=== PATIENT | male | born 1960 | race Caucasian/White ===

== ENCOUNTER 2020-04-27 15:10 | Emergency (ER) | payer OTHER ==
[~2020-04-27] VITALS: Ht 177.8 cm; Wt 95.3 kg
--- NOTE | 2020-04-27 15:38 | Emergency Room Report ---
History of Present Illness General Chief Complaint: Flu Like Symptoms Source: Patient Present Illness HPI Disclaimer: Please note that this report is being documented using [employer] technology. This can lead to erroneous entry secondary to incorrect interpretation by the dictating instrument. HPI: 60-year-old male history of hypertension presents for evaluation of shortness of breath. Symptoms began 5 days ago. Complaining of shortness of breath and dry cough. Denies fever chills, chest pain, nausea, vomiting or diarrhea. Compliant with his antihypertensive medication. Tested for COVID-19 2 days ago but results are not yet available. Multiple sick contacts with confirmed COVID-19 in the past weeks. Sent in for his PMD for rapid test and monoclonal antibody infusion if positive. No prior history of anaphylactic reaction. No other complaints from patient at this time. PMH: Hypertension PSH: Inguinal hernia repair Allergies: Denied Social Hx: Non-smoker Allergies: Coded Allergies: No Known Allergies (Unverified , 04/27/20) COVID-19 Screening Contact w/high risk pt: No Experienced COVID-19 symptoms?: Yes COVID-19 Testing performed UROLOGIST MD: Yes COVID-19 Screening: PUI COVID-19 COVID-19 Testing Source: 2 days ago Nursing Documentation-PMH Hx Hypertension: Yes Review of Systems All Other Systems: negative except mentioned in HPI Physical Exam Vital Signs Date Time Temp Pulse Resp B/P (MAP) Pulse Ox O2 Delivery O2 Flow Rate FiO2 04/27/20 15:29 98.4 99 18 120/75 (90) 94 Room Air General: Awake and alert, mildly uncomfortable, afebrile HEENT: NC/AT. EOMI. Cardiovascular: Borderline tachycardia. S1 and S2 normal. No murmur appreciated Resp: Normal work of breathing. Intermittent cough. No wheezing Skin: Intact. No abrasions, laceration or rash over the exposed skin MSK: Normal tone and bulk. Moving all extremities. No obvious deformity. Neuro: Awake and alert. Mentating appropriately. Medical Decision Making Diagnostic Impression: Primary Impression: Pneumonia Additional Impression: COVID-19 ER Course 60-year-old male presents for evaluation of shortness of breath. Concern for COVID-19 infection given multiple sick contacts recently. Pneumonia, bronchitis, pneumothorax and others also on differential. Tested positive for COVID-19 by rapid test. Pneumonia noted on chest x-ray. Prescribed Decadron and azithromycin by his PMD. Patient meets criteria for monoclonal antibody infusion. Provided with infusion drug fact sheet for patients who are considering receiving IV infusion. Patient understands and is aware that this medication is authorized for emergency use by the FDA and is still undergoing full testing. Understands monitoring necessary following infusion. Patient understands that this medication is intended to reduce symptoms and prevent hospitalization however the patient may require further testing, interventions and even hospitalization if symptoms worsen. Patient understands this is not a cure for COVID-19 infection. Addressed all patient questions. They have consented to receive monoclonal antibody infusion and for monitoring 1 hour post infusion for anaphylactic reaction. Infusion was administered via IV over the duration of 1 hour. The patient was monitored and observed for any reactions to infusion that require acute medical intervention. The patient did not have any significant re actions during the 1 hour observation period following infusion and is stable for discharge and outpatient follow-up with PMD. Instructed to return with new or worsening symptoms. Understand agree with this treatment plan. Microbiology Date/Time Source Procedure Growth Status 04/27/20 15:30 Nasopharynx SARS-CoV-2 RdRp Gene Assay - Final Complete Chest X-Ray Diagnostic Results Chest X-Ray Diagnostic Results : Chest X-Ray Ordered: Yes # of Views/Limited/Complete: 1 View Indication: Shortness of Breath EP Interpretation: Yes Interpretation: no effusion, no pneumothorax, other - Left lower lobe p neumonia Impression: Other - Left lower lobe pneumonia Electronically Signed by: Electronically signed by Dr. Giovanni Robertson MD Last Vital Signs Date Time Temp Pulse Resp B/P (MAP) Pulse Ox O2 Delivery O2 Flow Rate FiO2 04/27/20 15:29 98.4 99 18 120/75 (90) 94 Room Air Disposition: HOME, SELF-CARE Condition: Stable Giovanni Robertson MD Apr 27, 2020 15:38
--- NOTE | 2020-04-27 15:44 | NUR ---
ED Nurse Note: pt presents to ED c/o cough and fever for 2 days. pt reports getting tested for COVID 2 days ago, has not received a result yet. pt was sent by Dr. Cornelius to be evaluated for monoconal antibody infusion
[2020-04-27 15:45] VITALS: BP 120/75
[2020-04-27] MEDS ORDERED: Regeneron EUA MISC ONE (16:15)
[2020-04-27] MEDS ORDERED: Regeneron EUA 2,400 MG in NS 255 ML IVPB SCH (16:15)
--- NOTE | 2020-04-27 16:57 | Diagnostic Imaging Report ---
EXAM: XR Chest, 1 View CLINICAL HISTORY: SOB TECHNIQUE: Frontal view of the chest. COMPARISON: None FINDINGS: Hardware: None. Lungs/pleura: Patchy opacities in the left lower lung. No pleural effusion or pneumothorax. Heart/mediastinum: Normal. No cardiomegaly. Soft tissues: Unremarkable. Bones: No acute fracture. Upper abdomen: Normal. IMPRESSION: Patchy opacities in the left lower lung, concerning for an infectious/inflammatory process.
--- NOTE | 2020-04-27 17:10 | NUR ---
ED Nurse Note: infusion began
--- NOTE | 2020-04-27 18:10 | NUR ---
ED Nurse Note: infusion finished, no adverse reaction noticed
[2020-04-27 19:10] VITALS: BP 124/73
--- NOTE | 2020-04-27 19:10 | NUR ---
ER DISCHARGE NOTE: Patient is cleared to be discharged per ERMD, pt is aox4, on room air, with stable vital signs. pt was given dc and prescription instructions, pt was able to verbalize understanding, pt id band and iv site removed without complications. pt is able to ambulate with steady gait. pt took all belongings.
--- NOTE | 2020-04-28 17:29 | Consultation ---
DATE OF CONSULTATION: 04/27/2020 PULMONARY CONSULTATION HISTORY OF PRESENT ILLNESS: This is a 60-year-old male who is a known hypertensive with underlying obesity and BECKY. He started feeling unwell with shortness of breath and persistent dry cough for approximately 5 days ago. 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 He himself underwent a PCR test, however, results are pending. He happened to be in the area and due to worsening shortness of breath he came to the emergency room. He states he is using his blood pressure medications and a CPAP machine appropriately. PAST MEDICAL HISTORY: Hypertension, BECKY, obesity. PAST SURGICAL HISTORY: Inguinal hernia repair. ALLERGIES: None. HOME MEDICATIONS: Reviewed and reconciled in chart. REVIEW OF SYSTEMS: Denies any headaches, hematemesis, melena, hematochezia. He admits to cough, and shortness of breath. PHYSICAL EXAMINATION: GENERAL: Reveals a 60-year-old male. VITAL SIGNS: Blood pressure is 120/70, heart rate is 95, respirations are 18, O2 saturation 94% on room air. HEENT: Unremarkable. CHEST: Diminished breath sounds bilaterally. HEART: Normal heart sounds. ABDOMEN: Soft. EXTREMITIES: There is no edema. LABORATORY AND DIAGNOSTIC DATA: Rapid COVID-19 test was done which was positive. X-ray chest was obtained which showed evidence for patchy bilateral infiltrates, left greater than right. No other labs performed. IMPRESSION: 1. COVID-19 pneumonia. 2. Hypertension. 3. Obesity. DISCUSSION: He is a candidate for monoclonal antibody which has been ordered and recommended to be given as per protocol. The patient received Regeneron x1 and after observation for 4 hours, he was allowed to be discharged home with outpatient follow with primary care physician. Scott Cornelius M.D. DR: Paras JOB#: [id number] CC: SANDRA
== END 2020-04-27 19:10 | disposition home or self-care (01) ==
LOC: EMR 16:01
DX: U07.1 COVID-19 (principal); J12.89 Other viral pneumonia; I10 Essential (primary) hypertension
CPT/HCPCS: 71045; 96365; 99284; J7050; Q0243; U0002